=== PATIENT | male | born 1960 | race Caucasian/White ===

== ENCOUNTER 2023-11-04 11:55 | Inpatient (IN) | payer MEDICARE, MEDICAID ==
[~2023-11-04] VITALS: Ht 177.8 cm; Wt 84.4 kg
--- NOTE | 2023-11-04 12:50 | NUR ---
Pt. arrived to the floor from [facility]. Pt. is A&XO3, assessment complete. INT to lt. hand patent. 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 Pt. reports pain at a 7 on pain scale. Will notified Dr. Hare. Call light within reach.
[2023-11-04 13:00] VITALS: BP 127/73; PULSE 75; TEMP 97.6
[2023-11-04] MEDS ORDERED: NORVASC 5MG5 MG/TAB PO (13:06)
[2023-11-04] MEDS ORDERED: LIPITOR 40MG TA40 MG PO (13:07)
[2023-11-04] MEDS ORDERED: ASPIRIN E.C. 8181 MG PO (13:07)
[2023-11-04] MEDS ORDERED: DEPAKOTE 125MG125 M1 PO (13:08)
[2023-11-04] MEDS ORDERED: CYMBALTA 60MG60 MG PO (13:09)
[2023-11-04] MEDS ORDERED: NEURONTIN100 MG/CAP PO (13:10)
[2023-11-04] MEDS ORDERED: GLUCOPHAGE XR500 M1 PO (13:11)
[2023-11-04] MEDS ORDERED: PERCOCET 325 MG1 TAB PO (13:13)
[2023-11-04] MEDS ORDERED: SENNA-S 50 MG-81 TAB PO (13:14)
[2023-11-04] MEDS ORDERED: XANAX .25M0.25 MG/TA PO (13:15)
[2023-11-04] MEDS ORDERED: Ondansetron 4 MG/2 ML VIAL IV PRN (14:45)
[2023-11-04] MEDS ORDERED: Acetaminophen 500 MG TAB PO SCH (14:45)
[2023-11-04] MEDS ORDERED: Polyethylene Glycol 3350 17 GM PDS PO PRN (14:45)
[2023-11-04] MEDS ORDERED: Vancomycin 1.5 GM,Special Dose/Pharmacy Prepared 1.5 GM in NS 250 ML IV SCH (15:45)
[2023-11-04 15:57] VITALS: BP 114/71; PULSE 89; TEMP 97.7
[2023-11-04] MEDS ORDERED: oxyCODONE 5 MG TAB PO PRN ×2 (16:15→17:15)
[2023-11-04] MEDS ORDERED: Sennosides/Docusate 8.6-50 MG TAB PO PRN (17:15)
[2023-11-04] MEDS ORDERED: Morphine 4 MG/ML VIAL IV PRN (17:15)
[2023-11-04] MEDS ORDERED: Dextrose (Glucose) 15 GM (4 x 3.75 GM) Chewable TABLET PACK PO PRN (17:15)
[2023-11-04] MEDS ORDERED: Dextrose 50% Water 25 GM/50 ML SYRINGE IV PRN (17:15)
[2023-11-04] MEDS ORDERED: Glucagon 1 MG VIAL IM PRN (17:15)
[2023-11-04 17:23] VITALS: BP_SYST 114
--- NOTE | 2023-11-04 17:59 | NUR ---
Offered pain mediction and IV abx to the pt. Pt. finally willing to take the meds. See mar.
[2023-11-04 19:19] VITALS: BP 120/72; PULSE 96; TEMP 96.4
[2023-11-04 20:00] VITALS: BP_SYST 120
[2023-11-04] MEDS ORDERED: Gabapentin 100 MG CAP PO SCH (21:00)
[2023-11-04] MEDS ORDERED: Divalproex 125 MG Delayed Release Sprinkles CAP PO SCH (21:00)
[2023-11-04] MEDS ORDERED: Atorvastatin 40 MG TAB PO SCH (21:00)
[2023-11-04] MEDS ORDERED: ALPRAZolam 0.25 MG TAB PO SCH (21:00)
[2023-11-04] MEDS ORDERED: Insulin Lispro (HumaLOG) SQ SCH (21:00)
--- NOTE | 2023-11-04 23:30 | NUR ---
patient lying in bed alert and oriented x4. denies chest pain and shortness of breath. IV in LH is patent, site is CDI. Right BKA dressing fell off, wound culture obtained, bloody drainage noted, redness and tenderness of extremity, new dressing applied, nonadherent gauze with abd and telfa wrap, CDI. LLE +1 pitting edema noted. pt pivot transfer to wheechair and toilet and back in bed x1 assist. pt aware and agreeable with NPO status at midnight. full bed linens and gown changed. pt has no further needs, questions or concerns at this time. fall precautions in place, call light within reach. will continue to monitor.
[2023-11-05] VITALS (13 sets, daily range): BP systolic 108–133; BP diastolic 45–80; PULSE 62–76; TEMP 98–98.9
--- NOTE | 2023-11-05 08:30 | NUR ---
Pt. laying in bed. Pt. is A&OX3, assessment complete. INT to lt. hand patent. Pt. radamesely yells at this nurse that he in pain. Pt. asked what he would like for pain and pt. states "not tylenol" Offered morphine and oxycodone. Pt. request the morphine. Giving per orders. Pt. denies further needs.
[2023-11-05] MEDS ORDERED: ceFAZolin 2 G IV SCH (09:00)
[2023-11-05] MEDS ORDERED: DULoxetine 60 MG CAP PO SCH (09:00)
[2023-11-05 11:26] LABS: BASO # 0.1 K/mm3 (0.0-0.2); BASO % 0.7 % (0.0-2.0); EOS # 1.6 K/mm3 (0.0-0.7); EOS % 12.6 % (0.0-4.0); GRAN # 7.9 K/mm3 (1.4-6.5); GRAN % 62.7 % (42.2-75.2); HEMOGLOBIN 11.5 g/dl (13.5-18.0); LYMPH # 1.9 K/mm3 (1.2-3.4); LYMPH % 15.3 % (20.0-51.0); MEAN CELL VOLUME 85 fl (80.0-100.0); MEAN CORPUSCULAR HEMOGLOBIN 28 pg (27-31); MEAN CORPUSCULAR HGB CONC 33 g/dl (33.0-37.0); MONO # 0.9 K/mm3 (0.1-0.6); MONO % 7.4 % (1.7-9.3); PLATELET COUNT 531 K/mm3 (130-400); RED BLOOD COUNT 4.15 M/mm3 (4.20-5.60); REDCELL DISTRIBUTION WIDTH-CV 15.3 % (11.5-14.5)
[2023-11-05 11:34] LABS: HEMATOCRIT 35.3 % (42.0-52.0)
[2023-11-05] MEDS ORDERED: GLUCOPHAGE500 MG/TAB PO (11:37)
--- NOTE | 2023-11-05 11:51 | NUR ---
delinquency prevention social worker met with patient to discuss discharge planning. Patient initially refused to speak with professor of social work but eventually was able to express he is currently staying in [place] at a facility for rehab. Patient would not confirm or deny if this facility was [facility] but stated he has only been there for 2 weeks. Patient stated he does not have anyone to contact in an emergency. Patient stated she has no DPOA-HC. Patient stated he has a wheelchair and that he is independent with ADLS. SW explained the plan would be to return to [facility] for continued rehab, patient was agreeable. SW left a voicemail with [facility] to determine patient's next of kin information and discuss discharge plan. Discharge plan: Return to [facility]
[2023-11-05] MEDS ORDERED: Ondansetron 4 MG/2 ML VIAL ONE (11:52)
[2023-11-05] MEDS ORDERED: Lidocaine PF 2% (20 MG/ML) 5 ML VIAL ONE (11:52)
[2023-11-05] MEDS ORDERED: fentaNYL 50 MCG/ML 2 ML VIAL ONE (11:53)
[2023-11-05 11:54] LABS: CALCIUM 8.7 mg/dL (8.4-10.2); CREATININE, serum 0.85 mg/dL (0.72-1.25); POTASSIUM 3.9 mEq/L (3.5-4.5)
--- NOTE | 2023-11-05 12:01 | NUR ---
house worker faxed updates to [facility].
[2023-11-05] MEDS ORDERED: ePHEDrine 50 MG/ML VIAL ONE (12:19)
[2023-11-05] MEDS ORDERED: HYDROmorphone 1 MG/1 ML SYRINGE [PACU/SDC ONLY] IV PRN (12:30)
[2023-11-05] MEDS ORDERED: fentaNYL 50 MCG/ML 1 ML SYRINGE/VIAL [PACU/SDC ONLY] IV PRN (12:30)
[2023-11-05] MEDS ORDERED: Morphine 2 MG/1 ML VIAL [PACU/SDC ONLY] IV PRN (12:30)
[2023-11-05] MEDS ORDERED: Ondansetron 4 MG/2 ML VIAL IV PRN (12:30)
[2023-11-05] MEDS ORDERED: hydrALAZINE 20 MG/ML 1 ML VIAL IV PRN (12:30)
[2023-11-05] MEDS ORDERED: Magnes Hydrox (MOM) 80 MG/ML 30 ML CUP PO PRN (13:15)
[2023-11-05] MEDS ORDERED: Naloxone 0.4 MG/ML VIAL IV PRN (13:15)
[2023-11-05] MEDS ORDERED: Mag/Al Hydrox/Simeth Susp 30 ML CUP PO PRN (13:15)
[2023-11-05] MEDS ORDERED: Docusate Sodium 100 MG CAP PO PRN (21:00)
--- NOTE | 2023-11-05 22:49 | NUR ---
patient lying in bed, alert and oriented x4. IV in MAGALI is patent, site is CDI, IV in LH is patent with redness and slight swelling. Right BKA with gauze and KAVITHA dressing, CDI hemavac noted and draining. redness noted on LLE. pt has no further needs, questions, or concerns at this time. fall precautions in place, call light within reach. will continue to monitor.
[2023-11-06] VITALS (12 sets, daily range): BP systolic 121–132; BP diastolic 63–72; PULSE 72–79; TEMP 97.8–98.6
[2023-11-06 06:26] LABS: HEMATOCRIT 37.5 % (42.0-52.0); MEAN CELL VOLUME 86 fl (80.0-100.0); MEAN CORPUSCULAR HEMOGLOBIN 28 pg (27-31); MEAN CORPUSCULAR HGB CONC 32 g/dl (33.0-37.0); MEAN PLATELET VOLUME 9.3 fl (7.4-10.4); PLATELET COUNT 470 K/mm3 (130-400); RED BLOOD COUNT 4.34 M/mm3 (4.20-5.60); REDCELL DISTRIBUTION WIDTH-CV 15.8 % (11.5-14.5)
[2023-11-06 06:36] LABS: CALCIUM 8.3 mg/dL (8.4-10.2); CREATININE, serum 0.96 mg/dL (0.72-1.25); POTASSIUM 4.5 mEq/L (3.5-4.5)
--- NOTE | 2023-11-06 08:00 | NUR ---
PATIENT IS A&O WITH A DIFFICULT PERSONALITY. THREE DIMENSIONAL MAP MODELER MENTIONED ISSUES WITH BEHAVIORS AND VERBAL ABUSE. UPON ENTERING ROOM, RN IDENTIFIED HERSELF AND SAID HELLO IN A FRIENDLY MANNOR. PATIENT DID NOT MAKE ANY EYE CONTACT OR RESPOND TO PATIENT AT FIRST. PATIENT SITTING AT BEDSIDE WITH BREAKFAST TRAY. PCT REPORTED PATIENT HAD ASKED FOR PAIN MEDS RIGHT BEFORE NURSING WENT IN WITH AM MEDS. RN ASKED PATIENT IF HE WAS HURTING AND TO RATE HIS PAIN. PATIENT RESPONDED WITH "IMAGINE THAT, HURTING AFTER SURGERY, YOU STUPID". RN VERY NICLY EXPLAINED PRN MEDS AND WANTED TO OFFER SOMETHING IV IT WAS TO EARLY FOR PO PAIN MEDS. PATIENT THEN RAISED HIS VOICE AND CALLED THE NURSE A BITCH AND THEN KICKED HIS BEDSIDE TRAY. RN LEFT ROOM, NOTIFIED CHARGE NURSE & PROTEIN CHEMIST. NOW ROUNDING AND ALSO SPOKE WITH PATIENT ABOUT VERBALLY ABUSING STAFF. ORTHO ALSO IN ROOM ROUNDING AND TALKING WITH PATIENT.
[2023-11-06 08:10] LABS: BAND 1 % (0-10); EOSINOPHIL 11 % (0-4); LYMPHOCYTE 11 % (20.0-51.0); NEUTROPHILS 66 % (42.0-75.2); PLATELET ESTIMATE INCREASED (NORMAL)
--- NOTE | 2023-11-06 11:50 | NUR ---
UPON RE-ENTERING ROOM, SECURITY WENT IN WITH NURSING STAFF. PATIENT MADE JOKES ABOUT NURSING STAFF NEEDING A HIRED BODY GUARD BUT OVERALL DIDN'T YELL, CURSE OR THROW ANYTHING AT STAFF WITH SECURITY PRESENT.
--- NOTE | 2023-11-06 13:30 | NUR ---
PT AT BEDSIDE TO EVAL AND TREAT. PATIENT WANTED NOTHING TO DO WITH PT AND WOULDN'T WORK WITH HER. SEE PT NOTES.
--- NOTE | 2023-11-06 18:18 | NUR ---
Care resumed from Ayesha. Patient has had minimal needs. Disliked his dinner. New tray ordered. Hemovac to be removed per orders
--- NOTE | 2023-11-06 18:42 | NUR ---
Attempted to remove hemovac drain, patient started cursing at this nurse and getting upset at how Nurse was slowly removing Dawit wrap to get to drain. I will report off to tyrone drain not removed at this time due to patient curing at staff.
--- NOTE | 2023-11-06 19:22 | NUR ---
PT CALLED THE DESK ASKING FOR GAUZE, WHEN RN ENTERED ROOM TO DELIVER GAUZE, HEMOVAC LYING ON BED BESIDE HIM, STATED "I TOOK IT OUT MYSELF SINCE NO ONE ELSE WOULD." HELPED PT REPLACE DRESSING TO RT BKA SITE. 40CC BLOODY DRAINAGE IN HEMOVAC.
--- NOTE | 2023-11-06 19:53 | NUR ---
Data: While speaking with special weapons and tactics officer, Air Support Control Officer learned that this Patient is "grumpy." Air Support Control Officer offered to speak with Patient. Patient was using a blue pen to outline a tatoo he has on his hand. Patient shared that he was annoyed because the RN watched him change the bandage on his amputated leg instead of changing it for him. Patient openly shared other aspects of his life, care, and family with Air Support Control Officer. Assessment: Patient is annoyed, but reasonable; perhaps lonely. Plan of Care: Air Support Control Officer provided supportive listening. Patient thanked Air Support Control Officer for visiting him. Patient is agreeable to Air Support Control Officer visiting him again. Air Support Control Officer will conduct follow-up visit on Friday. Air Support Control Officer educated Patient that Chaplains are available. If he would like another visit, he needs to request a Air Support Control Officer visit through the RN. Patient stated he will watch TV and Air Support Control Officer can visit him again on Friday.
[2023-11-07] VITALS (10 sets, daily range): BP systolic 108–142; BP diastolic 58–72; PULSE 72–96; TEMP 97.7–98.8
--- NOTE | 2023-11-07 08:00 | NUR ---
PATIENT IS ORIENTED BUT DROWSY THIS AM. PATIENT IS TYPICALLY IN A BAD MOOD IN THE MORNINGS AND REFUSED TO LET THE PCT TAKE HIS BLOOD SUGAR OR GET HIS VITALS. GAVE PATIENT SPACE AND WILL RETURN
--- NOTE | 2023-11-07 08:50 | NUR ---
PATIENT ATE 100% OF BREAKFAST AND SITTING UP IN BED. PATIENT REQUESTING SOMETHING FOR PAIN. GAVE PRN OXYCODONE WITH AM MEDS. PATIENT ALLOWED PCT TO GET VITALS AT THIS TIME AND NURSING TO HEAD TO TOE ASSESSMENT & HANG IV ABX, SEE MAR. GALLERY ASSISTANT REPORTED PATIENT PULLED OUT HIS HEMOVAC BECAUSE HE SAID HE WAS TIRED OF IT. HEAD TO TOE ASSESSMENT COMPLETE. VITALS NOW TAKEN. NO OTHER NEEDS. CALL LIGHT IN REACH.
[2023-11-07] MEDS ORDERED: Cefepime 2 G in Water For Injection,Sterile 20 ML IV SCH (09:00)
--- NOTE | 2023-11-07 09:30 | NUR ---
AIVS AT BEDSIDE TO PLACE PICC LINE.
--- NOTE | 2023-11-07 14:39 | NUR ---
networker contacted [facility] whom expressed they are able to accept patient back. WILMER explained patient would be on IV antibiotics. [facility] expressed they would need to determine if they have staff available to administer the antibiotic twice a day, if not they stated "worse case scenario" patient would go to to the hospital to get them administered. [facility] requested social services follow up with them in the morning on Friday. WILMER faxed clinical updates to [facility]. Discharge plan: Return to [facility] - [facility]
--- NOTE | 2023-11-07 20:52 | NUR ---
PICC LINE PLACED TODAY WITH LARGE AMT OF POOLED BLOOD UNDER DRESSING AND SATURATED KAVITHA WRAP, TRANSPARENT DRESSING LEFT IN PLACE 4X4 GAUZE PLACED OVER THE TOP, NEW KAVITHA WRAP APPLIED, PICC LINE FLUSHED WITH SALINE AND MEDS GIVEN W/O DIFFICULTY, GOOD BLOOD RETURN. WILL NOTIFY AIVS REGARDING DRESSING.
[2023-11-08] VITALS (9 sets, daily range): BP systolic 104–135; BP diastolic 40–61; PULSE 64–83; TEMP 98.1–98.5
[2023-11-08 09:52] LABS: BASO # 0.1 K/mm3 (0.0-0.2); EOS # 1.3 K/mm3 (0.0-0.7); EOS % 11.1 % (0.0-4.0); GRAN # 7.1 K/mm3 (1.4-6.5); GRAN % 59.3 % (42.2-75.2); HEMOGLOBIN 10.4 g/dl (13.5-18.0); LYMPH # 2.1 K/mm3 (1.2-3.4); LYMPH % 17.6 % (20.0-51.0); MEAN CELL VOLUME 82 fl (80.0-100.0); MEAN CORPUSCULAR HEMOGLOBIN 27 pg (27-31); MEAN CORPUSCULAR HGB CONC 33 g/dl (33.0-37.0); MEAN PLATELET VOLUME 8.8 fl (7.4-10.4); MONO # 1.2 K/mm3 (0.1-0.6); MONO % 9.8 % (1.7-9.3); PLATELET COUNT 505 K/mm3 (130-400); RED BLOOD COUNT 3.82 M/mm3 (4.20-5.60); REDCELL DISTRIBUTION WIDTH-CV 15.7 % (11.5-14.5)
[2023-11-08 09:53] LABS: HEMATOCRIT 31.3 % (42.0-52.0)
[2023-11-08 10:07] LABS: C-REACTIVE PROTEIN 5.05 mg/dL (0.00-0.50); CALCIUM 9.2 mg/dL (8.4-10.2); CREATININE, serum 0.85 mg/dL (0.72-1.25); POTASSIUM 4.1 mEq/L (3.5-4.5)
--- NOTE | 2023-11-08 10:30 | NUR ---
Pt resting in bed complaining of pain 9/10 in right BKA. PRN pain medication provided per emar. Pt a/o x4, pt argumentative and at time chosses to valery this nurses questions making it difficult to communicate. PICC line dressing change at this time, very large blood clot present underdressing, flushing easily, blood return. Pt assisted with bed bath and ADLs at this time. Dressing to BKA clean and dry, leg elivated, ice declined. Pt tolerating deit well. No needs at this time, pt now resting in bed with eyes closed. Will continue to monitor.
--- NOTE | 2023-11-08 11:52 | NUR ---
SW sent updated clinicals to [facility] via secure email. Discharge plan: SNF
--- NOTE | 2023-11-08 12:53 | NUR ---
Data: Greeting Card Maker attempted follow-up visit from 11/06/2023 visit with Patient. Patient was eating lunch. Assessment: None. Patient was eating lunch. Plan of Care: Chaplains will remain available as needed/requested while Patient is admitted to this hospital.
--- NOTE | 2023-11-08 13:52 | NUR ---
Data: 2nd attempt at Spiritual Care visit. Patient stated he is watching TV. He requested more jello. Stated that all he got for breakfast was a "spoonful of scrambled eggs and a small piece of sausage." Agriculture Science Teacher asked about lunch. He stated he did have a hamburger for lunch. WAGON DRILLER brought him some orange, sugar-free jello. Assessment: Patient is dissatisfied with the food; enjoying the TV; and seems to enjoy being a slightly "crabby." Plan of Care: Agriculture Science Teacher requested the jello from the WAGON DRILLER. Patient thanked Agriculture Science Teacher for "checking on" him. Chaplains will remain available as needed/requested while Patient is admitted to this hospital.
[2023-11-09] VITALS (12 sets, daily range): BP systolic 114–155; BP diastolic 59–77; PULSE 61–97; TEMP 97.7–98.5
[2023-11-09 07:01] LABS: BASO # 0.1 K/mm3 (0.0-0.2); BASO % 1.1 % (0.0-2.0); EOS # 1.6 K/mm3 (0.0-0.7); EOS % 13.7 % (0.0-4.0); GRAN # 6.5 K/mm3 (1.4-6.5); GRAN % 55.8 % (42.2-75.2); HEMOGLOBIN 10.8 g/dl (13.5-18.0); LYMPH # 2.2 K/mm3 (1.2-3.4); LYMPH % 18.5 % (20.0-51.0); MEAN CELL VOLUME 84 fl (80.0-100.0); MEAN CORPUSCULAR HEMOGLOBIN 27 pg (27-31); MEAN CORPUSCULAR HGB CONC 32 g/dl (33.0-37.0); MEAN PLATELET VOLUME 9.4 fl (7.4-10.4); MONO # 1.1 K/mm3 (0.1-0.6); MONO % 9.5 % (1.7-9.3); PLATELET COUNT 541 K/mm3 (130-400); RED BLOOD COUNT 3.96 M/mm3 (4.20-5.60); REDCELL DISTRIBUTION WIDTH-CV 15.4 % (11.5-14.5)
[2023-11-09 07:05] LABS: HEMATOCRIT 33.3 % (42.0-52.0)
[2023-11-09 07:10] LABS: C-REACTIVE PROTEIN 4.34 mg/dL (0.00-0.50); CALCIUM 8.8 mg/dL (8.4-10.2); CREATININE, serum 0.79 mg/dL (0.72-1.25); POTASSIUM 3.8 mEq/L (3.5-4.5)
--- NOTE | 2023-11-09 08:36 | NUR ---
PATIENT RESTING WITH EYES CLOSED. THIS NURSE ATTEMPTED TO WAKE PATIENT UP TO TAKE MEDICATIONS AND PERFORM SHIFT ASSESSMENT. PATIENT ACKNOWLEDGED THIS NURSE BUT REFUSED TO WAKE UP. VSS. DRSG TO RIGHT CHRISTIANO CDI.
--- NOTE | 2023-11-09 10:27 | NUR ---
THIS NURSE ATTEMPTED TO GIVE PATIENT AM MEDICATIONS FOR THE THIRD TIME. WHEN PATIENT FINALLY WOKE UP, THIS NURSE TOLD PATIENT EACH MEDICATION THAT WOULD BE ADMINISTERED. PATIENT KEPT REPEATING "I DON'T NEED NO ASPIRIN," OVER AND OVER. THIS NURSE EDUCATED PATIENT ON IMPORTANCE OF MEDICATIONS. CONTINUED TO REFUSE. ALLOWED IV ANTIBIOTICS. WILL NOTIFY PHYSICIAN. DENIES FURTHER NEEDS AT THIS TIME
--- NOTE | 2023-11-09 12:25 | NUR ---
SW sent clinical updates to [facility] in [place] via secure email.
--- NOTE | 2023-11-09 13:14 | NUR ---
WILMER met with patient to discuss discharge plan to return to [facility] tomorrow per report from attending. Patient voiced frustration and stated "I don't know anything about nothing." WILMER informed that WILMER Fany has worked with him last week to secure his return to [facility] and facility will transport him. Patient continued to be upset with this SW and state he doesn't know about his discharge. WILMER attempted to explain discharge process and review Medicare IM form. Patient refused to sign form. WILMER informed patient that WILMER Fany will follow up with him tomorrow. Discharge plan: SNF
[2023-11-10] VITALS (7 sets, daily range): BP systolic 114–145; BP diastolic 63–67; PULSE 62–73; TEMP 97.9–98.2
--- NOTE | 2023-11-10 02:24 | NUR ---
Shift assessment completed- see documentation. Pt is alert and oriented. He states that he has no pain when he is resting. Dressing is CDI. PM medications administered as ordered. He was repositioned in the bed until comfortable. He denies other needs at this time. Fall precautions in place and call light within reach.
--- NOTE | 2023-11-10 10:16 | NUR ---
THIS RN CHANGED DRSG TO RT BKA PER ORDERS. MODERATE AMOUNT OF PURULENT AND BLOODY DRAINAGE NOTED. PATIENT TOLERATED WELL, DOES NOT COMPLAIN OF PAIN AT THIS TIME.
[2023-11-10] MEDS ORDERED: MAXIPIME2 GM IJ (11:32)
[2023-11-10] MEDS ORDERED: VANCOCIN HCL1 GM IV (11:33)
[2023-11-10] MEDS ORDERED: PERCOCET 325 MG1 TAB PO (11:34)
--- NOTE | 2023-11-10 12:45 | NUR ---
material preparation worker attended interdisciplinary clinical rounding with Dr. Ohara. Patient is medically ready to discharge back to [facility] today. SW faxed clinical updates to [facility]. They stated they can take patient back today and will sort out patient's IV antibiotics for them to give them at the long-term or take patient to the hospital to complete them. [facility] would just need the discharge orders to set up transportation. SW notified Shannon and Dr. Ohara. WILMER met with isidro to inform him that he would be set to return to [facility] today. SW reviewed the important message from Medicare. Patient did not respond while the social services was reading the form to him. SW asked if patient had any questions about this form. Patient stated "I did not get my medications." SW explained if he had concerns about his quality of care he could report it to the number on the form. Patient stated "I am telling you that I did not get my medications." SW asked patient if he would like her to speak with his nurse to verify if he was given his medications. Patient stated "why, so she can lie to me too." SW asked if he had any other questions or concerns regarding the form she read. Patient stated no, SW requested the signature. Patient refused. SW asked if there were any questions she could answer regarding the form. Patient stated he would not sign it. SW wrote "patient refused to sign" on form, made copy, placed original in chart and provided copy to patient. When providing copy to patient, he stated that the form would do no good for him because he cannot read. SW explained she reviewed the form with him and would be happy to review again if he needed her to. Patient stated he already made her aware of his concerns. SW explained any quality of care concerns could be reported to the number on the form, SW offered to assist patient with dialing the number in his room but that she would not be able to make the report herself that he would need to. Patient mimicked social services's response to him. SW asked if he had any other questions. Patient stared at social services. SW exited room. SW faxed discharge orders to [facility] along with the scripts for the antibiotics. SW notified [facility] and they expressed they would be able to transport patient around 1 pm. SW notified patient's nurse and unit aide tech. Discharge plan: [facility]- SNF
--- NOTE | 2023-11-10 14:08 | NUR ---
PATIENT ESCORTED OFF UNIT VIA WHEELCHAIR BY PCT AND [facility] STAFF. ALERT AND ORIENTED. ALL BELONGINGS WITH PATIENT. PICC LINE STILL IN PATIENT WILL CONTINUE TO RECEIVE IV ABX. DRESSING CDI.
--- NOTE | 2023-11-10 14:15 | NUR ---
REPORT CALLED TO RN THAT WILL TAKE CARE OF PATIENT AT [facility]. ALL QUESTIONS ANSWERED.
== END 2023-11-10 14:16 | DRG 502 ==
LOC: SURG 11:55
PROVIDERS: ADMIT Internal Medicine
PROC: 0JDN0ZZ Extraction of Right Lower Leg Subcutaneous Tissue and Fascia, Open Approach (ICD-10-PCS; principal; 2023-11-04)
DX: T87.43 Infection of amputation stump, right lower extremity (principal); E11.51 Type 2 diabetes mellitus with diabetic peripheral angiopathy without gangrene; Z79.84 Long term (current) use of oral hypoglycemic drugs; I10 Essential (primary) hypertension; E78.5 Hyperlipidemia, unspecified; G89.29 Other chronic pain; M47.817 Spondylosis without myelopathy or radiculopathy, lumbosacral region; Z86.73 Personal history of transient ischemic attack (TIA), and cerebral infarction without residual deficits
CPT/HCPCS: C1751; J0692; J1650; J1815; J2270; J2405; J2543; J2704; J3010; J3370; J7050; Q3014

== ENCOUNTER 2024-02-09 11:25 | Inpatient (IN) | payer MEDICARE, MEDICAID ==
[~2024-02-09] VITALS: Ht 177.8 cm; Wt 86.4 kg
[2024-02-09] VITALS (123 sets, daily range): BP systolic 116–124; BP diastolic 63–72; PULSE 64–65; TEMP 97.6–97.7; O2SAT 76–100
[~2024-02-09 11:25] MED LIST: ASPIRIN E.C. 8181 MG PO; CYMBALTA 60MG60 MG PO; DEPAKOTE 125MG125 M1 PO; GLUCOPHAGE XR500 M1 PO; GLUCOPHAGE500 MG/TAB PO; LIPITOR 40MG TA40 MG PO; MAXIPIME2 GM IJ; NEURONTIN100 MG/CAP PO; NORVASC 5MG5 MG/TAB PO; PERCOCET 325 MG1 TAB PO; SENNA-S 50 MG-81 TAB PO; VANCOCIN HCL1 GM IV; XANAX .25M0.25 MG/TA PO
--- NOTE | 2024-02-09 13:45 | NUR ---
Pt arrived to ICU 7 from [facility] via EMS at this time. Pt alert and oriented to self and time but is unsure of situation and place. Wears 2L nasal cannula with SPO2 in mid 90's. Pt resides at a custodial in [place] and had an episode of choking this morning during breakfast; pt lost consciousness and apparently had one round of chest compressions done. Pt then regained consciousness and vomited large amount of un-chewed food. Pt arrives to our facility with a shoe in his possession and nothing else. Recent right BKA with dressing in place. Pt c/o of phantom pain to right BKA rated 7/10; states he normally takes tylenol for this. PIV to right hand; saline locked and flushes well. Dr. Gomes aware of pt's arrival.
[2024-02-09] MEDS ORDERED: TYLENOL 325MG325 MG PO (14:07)
[2024-02-09] MEDS ORDERED: MIRALAX PA17 GM/Dose PO (14:08)
[2024-02-09] MEDS ORDERED: ULTRAM 50MG TAB50 MG PO (14:09)
[2024-02-09] MEDS ORDERED: SALONPAS1 EACH TP (14:11)
[2024-02-09] MEDS ORDERED: ABILIFY 10MG TA10 MG PO (14:13)
[2024-02-09] MEDS ORDERED: NS 1,000 ML IV SCH (14:30)
[2024-02-09] MEDS ORDERED: Acetaminophen 500 MG TAB PO PRN (14:30)
[2024-02-09] MEDS ORDERED: Ondansetron 4 MG/2 ML VIAL IV PRN (14:30)
[2024-02-09] MEDS ORDERED: Albuterol/Ipratropium 3 MG-0.5 MG/3 ML Neb Soln IH PRN (14:30)
[2024-02-09 14:48] LABS: ARTERIAL BLD GAS O2 SATURATION 93.5 % (92-100); ARTERIAL BLD GAS TCO2 CT 26.5; ARTERIAL BLOOD GAS BASE EXCESS 0.1 (-2-2); ARTERIAL BLOOD GAS HCO3 25.2 meq/L (22-26); ARTERIAL BLOOD GAS PCO2 42.8 mmHg (35-45); ARTERIAL BLOOD GAS PO2 70.7 mmHg (80-100); ARTERIAL BLOOD GAS pH 7.39 (7.35-7.45)
--- NOTE | 2024-02-09 17:24 | NUR ---
This RN spoke with Dr. Gomes. Lactic acid at other facility was 4.4, repeat at 1530 at our facility it is down to 2.60. Dr. Gomes states it does not need repeated further. Okay to do accuchecks q6; pt is diabetic and NPO.
[2024-02-09] MEDS ORDERED: Albuterol/Ipratropium 3 MG-0.5 MG/3 ML Neb Soln IH SCH (19:00)
--- NOTE | 2024-02-09 19:17 | NUR ---
PT RESTING IN BED UPON ENTERING. PT DENIES PAIN OR NEEDS AT THIS TIME. NS RUNNING AT 150 MLS/HR. BED IN LOWEST POSITION, CALL LIGHT IN REACH, BED ALARM ON
--- NOTE | 2024-02-09 20:08 | NUR ---
PT RESTING IN BED UPON ENTERING. PT UPDATED ON PLAN OF CARE AND VERBALIZED UNDERSTANDING. RIGHT BKA, KAVITHA WRAP IN PLACE. VITALS WNL. NS RUNNING AT 150 MLS/HR IN RIGHT HAND. PT DENIES PAIN OR NEEDS AT THIS TIME. BED IN LOWEST POSITION, CALL LIGHT IN REACH, BED ALARM ON.
[2024-02-10] VITALS (443 sets, daily range): BP systolic 109–133; BP diastolic 54–97; PULSE 64–82; TEMP 98.1–98.9; O2SAT 75–100
[2024-02-10 04:41] LABS: BASO # 0.1 K/mm3 (0.0-0.2); BASO % 0.6 % (0.0-2.0); EOS # 0.3 K/mm3 (0.0-0.7); EOS % 2.3 % (0.0-4.0); GRAN # 8.6 K/mm3 (1.4-6.5); GRAN % 72.1 % (42.2-75.2); HEMATOCRIT 34.5 % (42.0-52.0); HEMOGLOBIN 11.6 g/dl (13.5-18.0); LYMPH # 2.1 K/mm3 (1.2-3.4); MEAN CELL VOLUME 83 fl (80.0-100.0); MEAN CORPUSCULAR HEMOGLOBIN 28 pg (27-31); MEAN CORPUSCULAR HGB CONC 34 g/dl (33.0-37.0); MEAN PLATELET VOLUME 11.4 fl (7.4-10.4); MONO # 0.8 K/mm3 (0.1-0.6); MONO % 6.7 % (1.7-9.3); PLATELET COUNT 199 K/mm3 (130-400); RED BLOOD COUNT 4.16 M/mm3 (4.20-5.60); REDCELL DISTRIBUTION WIDTH-CV 14.7 % (11.5-14.5)
[2024-02-10 04:57] LABS: ALBUMIN 2.6 g/dL (3.4-4.8); BILIRUBIN,TOTAL 0.5 mg/dL (0.2-1.2); CALCIUM 8.3 mg/dL (8.4-10.2); CREATININE, serum 0.94 mg/dL (0.72-1.25); POTASSIUM 4.4 mEq/L (3.5-4.5); TOTAL PROTEIN 5.5 g/dl (6.2-8.1)
[2024-02-10 05:13] LABS: INR 1.2 (0.8-3.0)
--- NOTE | 2024-02-10 05:38 | NUR ---
PT REFUSED GLUCOSE CHECK. THIS NURSE EDUCATED PT ON NPO ORDER AND IMPORTANCE OF CHECKING BLOOD GLUCOSE TO TREAT IF NEEDED. PT REMINDED THAT IT WAS CHECKED 6 HOURS BEFORE BY THIS NURSE AND THAT BLOOD GLUCOSE FROM MORNING LABS IN THE 80S. PT REFUSED AGAIN AND THIS NURSE REEDUCATED PT. PT STATED "JUST GO". PT HAS NO OBVIOUS NEEDS AT THIS TIME. BED IN LOWEST POSITION, CALL LIGHT IN REACH, BED ALARM ON
--- NOTE | 2024-02-10 07:24 | NUR ---
No reported events overnight. Patient did refuse blood sugar check this am. Will encourage to allow for recheck.
--- NOTE | 2024-02-10 10:21 | NUR ---
medical social worker contacted [facility] to determine if patient has a point of contact or power of prosecuting attorney for healthcare decisions. SW was notified "no, he is his own power of prosecuting attorney." SW met with patient to discuss discharge planning. Patient wants food but he choked on food at the [facility], so he needs to be evaluated by speech therapy first. Patient confirmed he lives in [place] at the [facility]. Patient's chart lists his PCP as Dr. Salcedo and Pharmacy is [facility] but patient was uncertain if those were correct or not. Patient's insurance is Medicare A and B and Medicaid [facility]. No DPOA-HC and patient did not want to complete one. Patient stated he has no point of contact. DME is a wheelchair and reports his staff at the nursing facility assist him with showering and using the restroom. Patient is currently on oxygen which was not his baseline. Patient reports his nursing staff transports him to and from his appointments. Patient's plan is to return to [facility] upon discharge. WILMER faxed clinical updates to [facility]. WILMER also secure emailed updates to [facility] in case fax does not go through. Discharge plan: [facility] in [place]
[2024-02-10] MEDS ORDERED: DULoxetine 60 MG CAP PO SCH (10:58)
[2024-02-10] MEDS ORDERED: Lidocaine 4% Topical Patch TP PRN (11:00)
[2024-02-10] MEDS ORDERED: Glucagon 1 MG VIAL IM PRN (11:00)
[2024-02-10] MEDS ORDERED: Dextrose 50% Water 25 GM/50 ML SYRINGE IV PRN (11:00)
[2024-02-10] MEDS ORDERED: Dextrose (Glucose) 15 GM (4 x 3.75 GM) Chewable TABLET PACK PO PRN (11:00)
[2024-02-10] MEDS ORDERED: Polyethylene Glycol 3350 17 GM PDS PO PRN (11:00)
[2024-02-10] MEDS ORDERED: Insulin Lispro (HumaLOG) SQ SCH (12:00)
[2024-02-10] MEDS ORDERED: Gabapentin 100 MG CAP PO SCH (14:00)
[2024-02-10] MEDS ORDERED: Divalproex 125 MG Delayed Release Sprinkles CAP PO SCH (14:00)
--- NOTE | 2024-02-10 19:20 | NUR ---
THIS NURSE RECIEVED REPORT FROM MADONNA DUDLEY. PATIENT IS WATCHING TV, QUITELY AT THIS TIME. PATIENT HAS NO COMPLAINTS OF PAIN. PATIENT HAS A 20G IN THE R HAND THAT IS SALINE LOCKED AT THIS TIME. PATIENT IS RECIEVING A BREATHING TREATMENT FROM RESPIRATORY. PATIENT SEEMS TO BE IN GOOD SPIRITS AND WILLING TO HOLD A CONVERSATION WITH THIS NURSE. VITAL SIGNS ARE WNL. NO CONCERNS AT THIS TIME. BED IN LOW POSITION, WHEELS ARE LOCKED, CALL LIGHT IS WITHIN THE PATIENT'S REACH.
[2024-02-10] MEDS ORDERED: Atorvastatin 40 MG TAB PO SCH (21:00)
[2024-02-10] MEDS ORDERED: Sennosides/Docusate 8.6-50 MG TAB PO SCH (21:00)
[2024-02-10] MEDS ORDERED: ARIPiprazole 10 MG TAB PO SCH (21:00)
--- NOTE | 2024-02-10 23:53 | NUR ---
PATIENT REFUSED HIS 0000 BLOOD SUGAR CHECK. PATIENT STATED THAT THE LAST ONE WAS OKAY, SO THIS ONE IS NOT NECESSARY. PATIENT EDUCATED ON HIS RIGHT TO REFUSE, BUT ALSO ON THE IMPORTANCE OF MONITORING HIS BLOOD SUGAR. PATIENT WAS COOPERATIVE WITH THE EDUCATION, BUT STILL REFUSED THE BLOOD SUGAR CHECK. PATIENT VERY PLEASANT DURING THIS INTERACTION. BED IN LOW POSITION, CALL LIGHT WITHIN THE PATIENT'S REACH, BED ALARM ON, AND WHEELS LOCKED.
[2024-02-11] VITALS (73 sets, daily range): BP systolic 121–149; BP diastolic 62–80; PULSE 59–78; TEMP 98–98.4; O2SAT 89–100
[2024-02-11 05:29] LABS: BASO # 0.1 K/mm3 (0.0-0.2); BASO % 1.1 % (0.0-2.0); EOS # 0.6 K/mm3 (0.0-0.7); EOS % 7.4 % (0.0-4.0); GRAN # 4.5 K/mm3 (1.4-6.5); GRAN % 55.9 % (42.2-75.2); HEMOGLOBIN 11.5 g/dl (13.5-18.0); LYMPH % 24.9 % (20.0-51.0); MEAN CELL VOLUME 84 fl (80.0-100.0); MEAN CORPUSCULAR HEMOGLOBIN 28 pg (27-31); MEAN CORPUSCULAR HGB CONC 33 g/dl (33.0-37.0); MEAN PLATELET VOLUME 10.1 fl (7.4-10.4); MONO # 0.9 K/mm3 (0.1-0.6); MONO % 10.6 % (1.7-9.3); PLATELET COUNT 248 K/mm3 (130-400); RED BLOOD COUNT 4.18 M/mm3 (4.20-5.60); REDCELL DISTRIBUTION WIDTH-CV 14.6 % (11.5-14.5)
[2024-02-11 05:36] LABS: HEMATOCRIT 34.9 % (42.0-52.0)
[2024-02-11 05:48] LABS: ALBUMIN 2.9 g/dL (3.4-4.8); BILIRUBIN,TOTAL 0.5 mg/dL (0.2-1.2); CALCIUM 8.7 mg/dL (8.4-10.2); CREATININE, serum 0.86 mg/dL (0.72-1.25); POTASSIUM 4.2 mEq/L (3.5-4.5); TOTAL PROTEIN 6.3 g/dl (6.2-8.1)
--- NOTE | 2024-02-11 06:00 | NUR ---
PATIENT REFUSED FINGER STICK FOR BLOOD SUGAR AT 0600. LAB DID A CHEMISTRY WORKUP AND GLUCOSE WAS INCLUDED IN THEIR WORKUP. GLUCOSE WAS 99, WHICH IS WITHIN NORMAL RANGE. PATIENT REEDUCATED ON THE IMPORTANCE OF CHECKING ON HIS BLOOD SUGAR TO KNOW WHEN TO TREAT. PATIENT COMPLIANT WITH TEACHING, BUT NEEDS REVIEW. BED IN LOW POSITION, WHEELS LOCKED, BED ALARM ON, AND CALL LIGHT WITHIN THE PATIENT'S REACH.
--- NOTE | 2024-02-11 06:12 | NUR ---
PATIENT HAS HAD AN UNEVENTFUL EVENING. PATIENT HAS A 20G IN THE RIGHT HAND WITH ZOSYN RUNNING AT 25 ML/HR. PATIENT HAS FRESH LINENS. PERICARE PROVIDED WITH NO BREAKDOWN NOTED. PATIENT'S VITAL SIGNS ARE ALL WNL AND HE IS NO LONGER ON OXYGEN AT THIS TIME. BED IN LOW POSITION, WHEELS ARE LOCKED, BED ALARM IS ON, AND CALL LIGHT IS WITHIN THE PATIENT'S REACH.
--- NOTE | 2024-02-11 07:00 | NUR ---
REPORT RECEIVED FROM MADONNA KILPATRICK. PT RESTING IN BED, VSS ON ROOM AIR. PT IS ALERT AND ORIENTED, DENIES SHORTNESS OF BREATH OR PAIN. CALL LIGHT IN REACH.
[2024-02-11] MEDS ORDERED: AMOXICILLIN 8751 TAB PO (10:32)
--- NOTE | 2024-02-11 11:26 | NUR ---
die try out worker attended interdisciplinary clinical rounding with Dr. Zelaya. Patient is medically ready for discharge to [facility]. WILMER attempted to contact [facility]. SW was sent to the [facility], social work therapist left voicemail. WILMER faxed and secure emailed clinical updates and discharge orders to [facility]. Discharge plan:[facility]
--- NOTE | 2024-02-11 11:39 | NUR ---
sex worker or escort and Student Nereida, met with patient and notified him of the discharge today but waiting on a time. Patient understood and had no questions or concerns. SW attempted to call [facility] again. No answer. SW will continue to follow up. Discharge plan: [facility]- [facility]
[2024-02-11] MEDS ORDERED: Amoxicillin/Clavulanate K+ 875/125 MG TAB PO SCH (12:00)
--- NOTE | 2024-02-11 12:40 | NUR ---
PT STABLE THROUGHOUT SHIFT, VSS ON ROOM AIR. PT ABLE TO EAT, DRINK, VOID WITHOUT TROUBLE. PT TAKES PILLS WHOLE W/ WATER. IV TO R HAND DISCONTINUED. FIRST DOSE OF PO AUGMENTIN GIVEN W/ LUNCH. PT DISCHARGED TO RETURN BACK TO RETIREMENT AT 1240, DC PACKET GIVEN TO TRANSPORT STAFF. REPORT CALL[facility] TO [facility]UR[facility] AT [facility] AFTER PT DISCHARGE.
== END 2024-02-11 12:40 | DRG 871 ==
LOC: ICU 11:25
PROVIDERS: ADMIT Internal Medicine
DX: A41.9 Sepsis, unspecified organism (principal); J69.0 Pneumonitis due to inhalation of food and vomit; J96.01 Acute respiratory failure with hypoxia; E11.52 Type 2 diabetes mellitus with diabetic peripheral angiopathy with gangrene; M54.50 Low back pain, unspecified; I10 Essential (primary) hypertension; F01.B0 Vascular dementia, moderate, without behavioral disturbance, psychotic disturbance, mood disturbance, and anxiety; E78.5 Hyperlipidemia, unspecified; B87.9 Myiasis, unspecified; M47.817 Spondylosis without myelopathy or radiculopathy, lumbosacral region; Z89.521 Acquired absence of right knee; Z87.891 Personal history of nicotine dependence; Z86.73 Personal history of transient ischemic attack (TIA), and cerebral infarction without residual deficits; Z23 Encounter for immunization; Z79.82 Long term (current) use of aspirin; Z79.84 Long term (current) use of oral hypoglycemic drugs; Z79.899 Other long term (current) drug therapy; Z79.02 Long term (current) use of antithrombotics/antiplatelets
CPT/HCPCS: A9284; J1650; J2543; J7030